=== PATIENT | female | born 1975 | race Caucasian/White ===

== ENCOUNTER 2016-11-15 17:10 | Inpatient (IN) | payer MEDICAID ==
[~2016-11-15] VITALS: Ht 157.5 cm; Wt 75.7 kg
[~2016-11-15 17:10] MED LIST: ZITH250T PO
[2016-11-15] MEDS ORDERED: PREN29TA PO (18:20)
[2016-11-15 18:47] LABS: AUTOMATED NEUTROPHIL # 6.3 TH/MM3 (1.8-7.7); BASOPHIL % 0.3 % (0.0-2.0); EOSINOPHIL # 0.1 TH/MM3 (0-0.4); EOSINOPHIL % 0.8 % (0.0-4.0); HEMO FLAGS DIFF FINAL; LYMPH % 18.9 % (9.0-44.0); LYMPHOCYTE # 1.6 TH/MM3 (1.0-4.8); MEAN CELL VOLUME 73.2 FL (80.0-100.0); MEAN CORPUSCULAR HEMOGLOBIN 24.2 PG (27.0-34.0); MEAN CORPUSCULAR HGB CONC 33.1 % (32.0-36.0); MONO % 5.9 % (0.0-8.0); NEUT % 74.1 % (16.0-70.0); PLATELET COUNT 188 TH/MM3 (150-450); RED BLOOD COUNT 4.37 MIL/MM3 (4.00-5.30); RED CELL DISTRIBUTION WIDTH 15.9 % (11.6-17.2); WHITE BLOOD COUNT 8.5 TH/MM3 (4.0-11.0)
[2016-11-15 18:49] LABS: BACTERIA, URINE RARE /hpf; BLOOD, URINE NEG (NEG); COMMENT (UR) CULT NOT INDICATED; CULTURE IF INDICATED CULT NOT INDICATED; GLUCOSE,URINE NEG (NEG); KETONE, URINE NEG (NEG); NITRITE,URINE NEG (NEG); SQUAMOUS EPITHELIAL CELL URINE 1 /hpf (0-5); URINE COLOR COLORLESS (YELLW/STRAW)
[2016-11-15] MEDS ORDERED: DINOPROSTONE 10 MG INSERT-LEAVE FOR 12 HOURS VAGINAL ONE (19:00)
[2016-11-15] MEDS ORDERED: SODIUM CHLORIDE 0.9% FLUSH 10 ML FLUSH IV FLUSH PRN (19:00)
[2016-11-15] MEDS ORDERED: LACTATED RINGER'S 1000 ML INJ 1,000 ML IV SCH (20:00)
--- NOTE | 2016-11-16 08:14 | PD.LABORPN ---
Subjective Subjective no complaints, mild pressure, no regular contractions, no VB or LOF, good FM Objective Objective Pelvic Exam: Cervix: [post] Dilatation: [FT] Effacement: [th] Station: [-3] Presentation: [vtx] Membranes: [intact] Uterine Contractions: [irreg] FHT's: Category: [I] Baseline: [140s] Reactive: [y] Variability: [y] Decels: [n] Assessment/Plan Problem List: (1) Oligohydramnios in arreaga in third trimester (2) Grand multipara in labor (3) Advanced maternal age (AMA) in Assessment and Plan 41 yo admit for oligohydramnios at 36w5d for IOL 1) IOL: s/p cervidil overnight, no real cervical change or ctx, plan cytotec this AM, re-eval at noon-time 2) oligo on ultrasound 4.39cm 3) AMA: aleshia sono wnl, growth wnl last 59.7% on 11/15/16; informaseq neg & msafp neg 4) grandmultipara: PPH precautions 5) status: Cat I tracing, vtx Regi Bertrand MD Nov 16, 2016 08:14
[2016-11-16] MEDS ORDERED: MISOPROSTOL 25 MCG SUPP VAGINAL ONE ×2 (08:15→13:00)
--- NOTE | 2016-11-16 08:23 | MH ---
cc: NOMAN CINTRON M.D. DATE OF ADMISSION: 11/15/2016 DATE OF 1975 PATIENT HISTORY The patient is a 41-year-old female 9, para 8, estimated date confinement is December 09, 2016. The patient presents today at 36 weeks and 4 days with an ultrasound revealed an amniotic fluid index of 4.34. Biophysical profile was 6/8. The patient was recommended to proceed to labor and delivery for heart rate monitoring and potential induction of labor. The patient's course was unremarkable. She was evaluated for gestational diabetes with a normal 3-hour glucose tolerance test due to a one hour abnormality. ALLERGIES SHE HAS AN ALLERGY TO PENICILLIN. REVIEW OF SYSTEMS She denies any systemic or chronic disease states. PAST OBSTETRICAL HISTORY She has had all vaginal deliveries at full-term, no complicated pregnancies, no complicated deliveries, all of her deliveries or rapid once the patient proceeds to 4-5 cm. The patient's cervical exam today is long and closed, soft and posterior. The patient's group B strep status is negative. The patient's blood type is A+. PHYSICAL EXAMINATION GENERAL: The patient's physical exam the patient is well-appearing, well-nourished female in no acute stress. VITAL SIGNS: Stable. Blood pressures 100/60. She weighs 167 pounds. Baby's heart rate is in a 140s. HEENT: Shows no adenopathy or thyromegaly. LUNGS: Were clear in all banks. CARDIOVASCULAR: Regular rate and rhythm. ABDOMEN: Gravid, full-term. Fundal height measures about 37 weeks. Estimated weight is 7 pounds. PELVIC: Cervical exam is stated above. EXTREMITIES: Symmetrical, full range of motion. There is no cyanosis, clubbing or edema. ASSESSMENT The patient is 36 weeks and 4 days by early ultrasound. The patient with oligohydramnios, amniotic fluid index is 4.34. The patient's group B strep status is negative. She also has a history of advanced maternal age with normal genetic testing. She is grand multiparous. 9, para 8. PLAN The plan is for evaluation and heart rate monitoring and we will proceed with Cervidil induction pending the results of the nonstress test. Noman Cintron MD [id number]/[id number] /3:58 PM /8:22 AM
--- NOTE | 2016-11-16 12:38 | PD.LABORPN ---
Subjective Subjective feeling fine, no regular contractions, pain minimal 1/10 Objective Objective Pelvic Exam: Cervix: [post] Dilatation: [1-2] Effacement: [th] Station: [-3] Presentation: [vtx] Membranes: [intact] Uterine Contractions: [rare] FHT's: Category: [I] Baseline: [150s] Reactive: [y] Variability: [y] Decels: [n] Assessment/Plan Problem List: (1) Oligohydramnios in arreaga in third trimester (2) Grand multipara in labor (3) Advanced maternal age (AMA) in Assessment and Plan continue active mgmt for oligo/IOL second dose cytotec placed, minimal change proven pelvic & grand multipara, anticipate once able to get into active labor Regi Bertrand MD Nov 16, 2016 12:38
[2016-11-16] MEDS ORDERED: CITRIC ACID-SODIUM CITRATE LIQ 30 ML UDC PO SCH (16:45)
[2016-11-16] MEDS ORDERED: LIDOCAINE HCL 1% 50 ML VIAL I-DERMAL PRN (16:45)
[2016-11-16] MEDS ORDERED: OXYTOCIN 30 UNITS-500ML PREMIX 500 ML IV SCH (16:45)
--- NOTE | 2016-11-16 20:29 | PD.LABORPN ---
Subjective Subjective feeling slightly more regular contractions but still mild, not yet desiring epidural; no LOF or VB, good FM Objective Objective Pelvic Exam: Cervix: [post] Dilatation: [3] Effacement: [th] Station: [-2] Presentation: [vtx] Membranes: AROM'd bloody scant fluid this check Uterine Contractions: [q5 min] FHT's: Category: [I] Baseline: [140s] Reactive: [y] Variability: [y] Decels: [single variable, otherwise no] Assessment/Plan Problem List: (1) Oligohydramnios in arreaga in third trimester (2) Grand multipara in labor (3) Advanced maternal age (AMA) in Assessment and Plan continue active management AROM'd this check, IUPC placed pitocin at 6 milliunits/min anticipate Regi Fan MD Nov 16, 2016 20:29
[2016-11-16] MEDS ORDERED: MISOPROSTOL 200 MCG TAB ONE (20:56)
[2016-11-16] MEDS ORDERED: NO SYSTEM NARCOTICS PRN (23:00)
[2016-11-16] MEDS ORDERED: fentaNYL 2MCG-BUPIV 0.125% 100 ML EPIDURAL SCH (23:00)
[2016-11-16] MEDS ORDERED: DO NOT ADMINISTER ANTICOAGULANTS PRN (23:00)
[2016-11-16] MEDS ORDERED: ePHEDrine/NS 25 MG/5 ML SYR IV PRN (23:30)
[2016-11-17] VITALS (14 sets, daily range): BP systolic 98–121; BP diastolic 48–78; PULSE 86–91; RESP 18; TEMP 97.7–98.3
--- NOTE | 2016-11-17 01:56 | HHI.DCPOC ---
Discharge Care Plan Diagnosis: (1) (normal spontaneous vaginal delivery) Your Health Problems Are: Vaginal delivery Report Symptoms to Your Doctor -Temperate above 100.5 degrees -Redness, of incision or excessive or foul smelling drainage -Unusual pain or calf pain -Increased vaginal bleeding -Painful or difficulty urinating -Feelings of extreme sadness or anxiety after 2 weeks Goals to Promote Your Health * To prevent worsening of your condition and complications * To maintain your health at the optimal level Directions to Meet Your Goals Take your medications as prescribed Follow your dietary instruction Follow activity as directed Ensure plenty of rest for recovery Drink fluids for hydration Keep your appointments as scheduled Take your immunizations and boosters as scheduled If your symptoms worsen call your PCP, if no PCP go to Urgent Care Center or Emergency Room Smoking is Dangerous to Your Health. Avoid second hand smoke Call the 24-hour crisis hotline for domestic abuse at Regi Bertrand MD Nov 17, 2016 01:56
--- NOTE | 2016-11-17 01:56 | PD.OB.DELI ---
Delivery Date: Nov 17, 2016 Anesthesia: Epidural Episiotomy: None Vaginal Delivery: Normal Presentation: Occiput anterior Nuchal Cord: None Delayed cord clamping (45 sec): Yes Infant: Female, Single One Minute : 8 Five Minute : 9 Weight: 5#8oz Infant Care: Spontaneous crying, Responded to stimulation, Other (see nursery notes) Placenta: Spontaneous delivery, Intact, 3 vessel cord Laceration: No lacerations Additional Information EBL 100 mL induced due to oligohydramnios, delivered at 36w6d Regi Bertrand MD Nov 17, 2016 01:56
[2016-11-17] MEDS ORDERED: SODIUM CHLORIDE 0.9% FLUSH 10 ML FLUSH IV FLUSH SCH (02:00)
[2016-11-17] MEDS ORDERED: IBUPROFEN 600 MG TAB PO PRN (02:00)
[2016-11-17] MEDS ORDERED: ONDANSETRON ODT 4 MG TAB PO PRN (02:00)
[2016-11-17] MEDS ORDERED: ACETAMINOPHEN 325 MG TAB PO PRN (02:00)
[2016-11-17] MEDS ORDERED: WITCH HAZEL 50%/GLYCERIN 12.5% 40 PAD JAR TOPICAL PRN (02:00)
[2016-11-17] MEDS ORDERED: BENZOCAINE 20% TOPICAL SPRAY 60 ML CAN TOPICAL PRN (02:00)
[2016-11-17] MEDS ORDERED: SODIUM CHLORIDE 0.9% FLUSH 10 ML FLUSH IV FLUSH PRN (02:00)
[2016-11-17] MEDS ORDERED: ZOLPIDEM TARTRATE 5 MG TAB PO PRN (02:00)
[2016-11-17] MEDS ORDERED: MISOPROSTOL 200 MCG TAB RECTAL ONE (02:00)
[2016-11-17] MEDS ORDERED: DOCUSATE SODIUM 50 MG/SENNA 8.6 MG TAB PO PRN (02:00)
[2016-11-17] MEDS ORDERED: ALUMINUM/MAGNESIUM/SIMETH 30 ML CUP PO PRN (02:00)
[2016-11-17] MEDS ORDERED: MEASLES, MUMPS, RUBELLA VACCINE 0.5 ML VIAL SQ ONE (16:00)
[2016-11-17] MEDS ORDERED: DIPHTH/TETANUS/ACEL PERTUSSIS (BOOSTER) 0.5 ML VIAL/PFS IM ONE (16:00)
--- NOTE | 2016-11-18 08:03 | HHI.OB ---
Subjective Post Day: 1 Remarks doing well, , wants to go home today if possible Objective Vitals/I&O Vital Signs Date Time Temp Pulse Resp B/P Pulse Ox O2 Delivery O2 Flow Rate FiO2 11/17/16 19:25 98.3 89 18 112/75 11/17/16 19:25 86 11/17/16 09:00 98.0 88 18 108/70 Objective Remarks GENERAL: Well-nourished, well-developed patient. CARDIOVASCULAR: Regular rate and rhythm without murmurs, gallops, or rubs. RESPIRATORY: Breath sounds equal bilaterally. No accessory muscle use. ABDOMEN/GI: Abdomen soft, non-tender. Fundus: Firm, non-tender at umbilicus. GENITOURINARY: Light to moderate bleeding. EXTREMITIES: No cyanosis or edema, non-tender, without signs of DVT. Medications and IVs Current Medications Medications (Trade) Dose Ordered Sig/Salima Route Start Time Stop Time Status Last Admin (NS Flush) 2 ml UNSCH PRN IV FLUSH 11/15/16 19:00 (NS Flush) 2 ml BID IV FLUSH 11/17/16 02:00 (NS Flush) 2 ml UNSCH PRN IV FLUSH 11/17/16 02:00 (Tylenol) 650 mg Q4H PRN PO 11/17/16 02:00 (Motrin) 600 mg Q6H PRN PO 11/17/16 02:00 (Americaine 20% Top Spr) 1 spray Q4H PRN TOPICAL 11/17/16 02:00 11/17/16 08:38 (Tucks Pads) 1 applic QID PRN TOPICAL 11/17/16 02:00 11/17/16 08:39 (Jen-Colace) 2 tab Q12H PRN PO 11/17/16 02:00 (Ambien) 5 mg HS PRN PO 11/17/16 02:00 (Mag-Al Plus Susp Liq) 15 ml Q8H PRN PO 11/17/16 02:00 (Zofran Odt) 4 mg Q6H PRN PO 11/17/16 02:00 Assessment/Plan Problem List: (1) Oligohydramnios in arreaga in third trimester (2) Grand multipara in labor (3) Advanced maternal age (AMA) in (4) (normal spontaneous vaginal delivery) Assessment and Plan PPD #1 , IOL for oligo Discharge Planning routine Attending Attestation pt seen by Sobeida Hoffman MD Nov 18, 2016 08:03
[2016-11-18] MEDS ORDERED: IBUP-232 PO (08:05)
== END 2016-11-18 14:19 | disposition home or self-care (01) | DRG 775 ==
LOC: H2EB 17:10 → H2EA 19:42 → H1EA 11-17 04:15
PROVIDERS: ADMIT Obstetrics & Gynecology; ATTEND Obstetrics & Gynecology
PROC: 10E0XZZ Delivery of Products of Conception, External Approach (ICD-10-PCS; principal; 2016-11-17)
PROC: 3E0P7GC Introduction of Other Therapeutic Substance into Female Reproductive, Via Natural or Artificial Opening (ICD-10-PCS; 2016-11-17)
PROC: 3E0R3CZ (ICD-10-PCS; 2016-11-17)
PROC: 00HU33Z Insertion of Infusion Device into Spinal Canal, Percutaneous Approach (ICD-10-PCS; 2016-11-17)
DX: O41.03X0 Oligohydramnios, third trimester, not applicable or unspecified (principal); O09.529 Supervision of elderly multigravida, unspecified trimester; Z37.0 Single live birth; Z3A.36 36 weeks gestation of pregnancy
CPT/HCPCS: 59025; 81001; 85025; 88307; J2590; J7120

== ENCOUNTER 2017-06-21 11:53 | Emergency (ER) | payer MEDICAID ==
[~2017-06-21 11:53] MED LIST changes: +IBUP-232 PO; +PREN29TA PO; -ZITH250T PO
[2017-06-21 11:57] VITALS: BP 113/77; PULSE 100; RESP 16; TEMP 99.4; O2SAT 97
[2017-06-21] MEDS ORDERED: AZIT500T2 PO (13:33)
--- NOTE | 2017-06-21 13:34 | PD ---
HPI . Sore throat/fevers X 4 days Chief Complaint: Cold / Flu Symptoms Time Seen by Provider: 12:14 Travel History International Travel<30 days: No Contact w/Intl Traveler<30days: No Traveled to known affect area: No History of Present Illness HPI 42-year-old female presents the emergency department for evaluation of sore throat and fever times or days. Patient reports that the sore throat started last Monday. She reports that she has had fevers up to 102. Patient states she is able to eat and drink but it's painful to swallow. Patient presents to the emergency department with her 5 children to be evaluated for the same condition. Patient denies any major medical history and states she does not take any daily medication. PFSH Past Medical History ?: Not LMP: YEST Social History Alcohol Use: Yes (occas. wine) Tobacco Use: No Substance Use: No Allergies-Medications (Allergen,Severity, Reaction): Coded Allergies: penicillin G (Unverified Allergy, Severe, 04/04/17) Reported Meds & Prescriptions Reported Meds & Active Scripts Active Azithromycin 500 Mg Tab 500 Mg PO DAILY 5 Days Review of Systems Except as stated in HPI: all other systems reviewed are Neg Physical Exam Narrative GENERAL: Well-nourished, well-developed well-appearing 42-year-old female patient in no acute distress. Nontoxic appearing. Patient is resting on stretcher with her children, laughing and making jokes with them. SKIN: Focused skin assessment warm/dry. HEAD: Normocephalic. Atraumatic EYES: No scleral icterus. No injection or drainage. THROAT: Mild pharyngeal injection with exudates. Moderate tonsillar hypertrophy. Airway is patent. EARS: Bilateral pinnae and external canals appear within normal limits. Bilateral tympanic membranes without erythema, dullness or perforation. NECK: Supple, trachea midline. No JVD or lymphadenopathy. CARDIOVASCULAR: Regular rate and rhythm without murmurs, gallops, or rubs. RESPIRATORY: Breath sounds equal bilaterally. No accessory muscle use. GASTROINTESTINAL: Abdomen soft, non-tender, nondistended. MUSCULOSKELETAL: No cyanosis, or edema. Data Data Last Documented VS Vital Signs Date Time Temp Pulse Resp B/P (MAP) Pulse Ox O2 Delivery O2 Flow Rate FiO2 06/21/17 11:57 99.4 100 16 113/77 (89) 97 Orders Orders Group A Rapid Strep Screen (06/21/17 12:29) Strep Culture (Group A) (06/21/17 12:30) Ed Discharge Order (06/21/17 13:34) [facility] Medical Decision Making Medical Screen Exam Complete: Yes Emergency Medical Condition: Yes Differential Diagnosis Diagnoses include but not limited to pharyngitis, URI, viral syndrome Narrative Course 42-year-old female presents emergency department for evaluation of sore throat and fever 4 days. Patient reports that her children strep annually and she is concerned that this is the time. She reports to the emergency Department with all 5 of her children for evaluation of the same complaint. Rapid strep ordered and is negative. Spoke with my attending physician and patient will be treated empirically for bacterial pharyngitis. Patient prescribed azithromycin and discharged home with instructions for supportive care and to follow up with her primary care. Diagnosis Primary Impression: Pharyngitis Qualified Codes: J02.9 - Acute pharyngitis, unspecified Referrals: Primary Care Physician Patient Instructions: General Instructions, Pharyngitis (DC) Additional Instructions: Please return to emergency department if your symptoms return or worsen. Follow up with your primary care provider. Alternate ibuprofen and Tylenol as needed for pain or fever. Take full course of azithromycin as prescribed Stay hydrated, get enough rest, diet as tolerated. Med/Other Pt SpecificInfo: Prescription(s) given Scripts Azithromycin (Azithromycin) 500 Mg Tab 500 MG PO DAILY for Infection for 5 Days, #5 TAB 0 Refills Prov: Xiomara,Hermelinda CONDE 06/21/17 Disposition: 01 DISCHARGE HOME Condition: Stable Hermelinda Solano Jun 21, 2017 13:34
== END 2017-06-21 13:45 | disposition home or self-care (01) ==
LOC: PHEFT 11:53
DX: J02.9 Acute pharyngitis, unspecified (principal)
CPT/HCPCS: 87081; 87880; 99283

== ENCOUNTER 2017-08-28 19:33 | Emergency (ER) | payer MEDICAID ==
[~2017-08-28] VITALS: Ht 157.5 cm; Wt 76.3 kg
[~2017-08-28 19:33] MED LIST changes: +AZIT500T2 PO; -IBUP-232 PO; -PREN29TA PO
[2017-08-28 19:35] VITALS: BP 152/92; PULSE 118; RESP 16; TEMP 98.9; O2SAT 99
[2017-08-28] MEDS ORDERED: AZIT250T3 PO (20:03)
--- NOTE | 2017-08-28 20:04 | PD ---
HPI Chief Complaint: ENT Complaint Time Seen by Provider: 19:53 Travel History International Travel<30 days: No Contact w/Intl Traveler<30days: No Traveled to known affect area: No History of Present Illness HPI 42-year-old female here with sore throat and fever 2 days. Her son has strep throat. Pain with swallowing but does not endorse difficulty swallowing. She is able to eat and drink. Symptoms are slightly improved with [id number] Tylenol and ibuprofen. Symptom severity is moderate. PFSH Past Medical History Medical History: Denies Significant Hx Diminished Hearing: No Tetanus Vaccination: > 5 Years Influenza Vaccination: No ?: Not Past Surgical History Surgical History: No Previous Surgery Social History Alcohol Use: No Tobacco Use: No Substance Use: No Allergies-Medications (Allergen,Severity, Reaction): Coded Allergies: penicillin G (Unverified Allergy, Severe, 08/28/17) Reported Meds & Prescriptions Reported Meds & Active Scripts Active Azithromycin 250 Mg Tab 250 Mg PO DIRECTED Take 2 tabs (500 mg) on day 1 then 1 tab daily x 4 days. Azithromycin 500 Mg Tab 500 Mg PO DAILY 5 Days Review of Systems Except as stated in HPI: all other systems reviewed are Neg General / Constitutional: Positive: Fever Eyes: No: Visual changes HENT: Positive: Sore Throat Cardiovascular: No: Chest Pain or Discomfort Respiratory: No: Shortness of Breath Gastrointestinal: No: Abdominal Pain Physical Exam Narrative GENERAL: Alert female well-appearing. SKIN: Warm and dry. HEAD: Normocephalic. EYES: No injection or drainage. Throat: Pharyngeal erythema with tonsillar hypertrophy and exudate. NECK: Supple, trachea midline. Mild anterior cervical lymphadenopathy. CARDIOVASCULAR: Regular rate and rhythm without murmurs, gallops, or rubs. RESPIRATORY: Breath sounds equal bilaterally. No accessory muscle use. Data Data Last Documented VS Vital Signs Date Time Temp Pulse Resp B/P (MAP) Pulse Ox O2 Delivery O2 Flow Rate FiO2 08/28/17 19:35 98.9 118 16 152/92 (112) 99 MDM Medical Decision Making Medical Screen Exam Complete: Yes Emergency Medical Condition: Yes Differential Diagnosis Strep pharyngitis, viral pharyngitis, mononucleosis Narrative Course 42-year-old female here with exudative tonsillitis. Exposure to strep. Patient is nontoxic-appearing. Vital signs are stable. Repeat heart rate 102. Diagnosis Primary Impression: Pharyngitis Qualified Codes: J02.9 - Acute pharyngitis, unspecified Referrals: Primary Care Physician Additional Instructions: Tylenol or ibuprofen as needed for pain and fever. Antibiotics as prescribed. Stay well hydrated. Scripts Azithromycin (Azithromycin) 250 Mg Tab 250 MG PO DIRECTED for Infection, #6 TAB 0 Refills Take 2 tabs (500 mg) on day 1 then 1 tab daily x 4 days. Prov: Laura Barraza 08/28/17 Disposition: 01 DISCHARGE HOME Condition: Stable Laura Barraza Aug 28, 2017 20:03
== END 2017-08-28 20:20 | disposition home or self-care (01) ==
LOC: PHEFT 19:33
DX: J02.9 Acute pharyngitis, unspecified (principal)
CPT/HCPCS: 99283